=== PATIENT | female | born 1990 | race Caucasian/White ===

== ENCOUNTER 2020-11-22 18:28 | Emergency (ER) | payer OTHER ==
[~2020-11-22 18:28] MED LIST: CYCLOBENZAPRINE10 MG PO; FERROUS SULFAT325 M2 PO; VOLTAREN EC 5050 MG PO; ZOFRAN4 MG PO
== END 2020-11-22 22:50 | disposition home or self-care (01) ==
LOC: ER1 18:28
DX: J00 Acute nasopharyngitis [common cold] (principal); Z20.822 Contact with and (suspected) exposure to COVID-19
CPT/HCPCS: 99284; U0002

== ENCOUNTER 2021-10-26 18:15 | Emergency (ER) | payer OTHER ==
[2021-10-26 20:35] LABS: HEMOGLOBIN 14.5 gm/dl (12.3-15.3); RED BLOOD COUNT 4.76 M/UL (4.00-5.10); WHITE BLOOD COUNT 3.8 K/UL (4.5-11.0)
[2021-10-26 21:01] LABS: BUN/CREATININE RATIO 11 (0-10)
== END 2021-10-26 23:27 | disposition home or self-care (01) ==
LOC: ER1 18:15
PROVIDERS: Nurse Practitioner
DX: U07.1 COVID-19 (principal); Z90.49 Acquired absence of other specified parts of digestive tract; R05.9 Cough, unspecified
CPT/HCPCS: 71045; 80048; 81001; 85025; 99283; U0002

== ENCOUNTER 2022-04-16 07:39 | Emergency (ER) | payer OTHER ==
[2022-04-16] MEDS ORDERED: PENVEE K 500 M500 MG PO (09:43)
== END 2022-04-16 09:46 | disposition home or self-care (01) ==
LOC: ER1 07:39
DX: J02.9 Acute pharyngitis, unspecified (principal); Z20.822 Contact with and (suspected) exposure to COVID-19
CPT/HCPCS: 0240U; 87081; 87880; 99284

== ENCOUNTER 2022-07-17 20:43 | Emergency (ER) | payer OTHER ==
[~2022-07-17 20:43] MED LIST changes: +PENVEE K 500 M500 MG PO
[2022-07-17] MEDS ORDERED: IBUPROFEN600 MG PO (22:20)
== END 2022-07-17 22:32 | disposition home or self-care (01) ==
LOC: ER1 20:43
DX: S93.402A Sprain of unspecified ligament of left ankle, initial encounter (principal); W22.8XXA Striking against or struck by other objects, initial encounter
CPT/HCPCS: 73590; 73600; 73620; 99283